=== PATIENT | female | born 1970 | race Caucasian/White ===

== ENCOUNTER → 2017-12-06 | Outpatient (CLI) | payer BC ==
[~2017-12-06] MED LIST: CARAFATE 1GM1 G PO; DEXILANT60 MG PO; FLAGYL500 MG PO; PEPTO BISMOL262 MG; PEPTO-BISM262 MG/15 PO; PEPTO-BISMOL262 M1 PO; PERCOCET 325 MG1 TA2 PO; PRILOSEC 20MG20 MG PO; TETRACYCLINE H250 M1 PO; TETRACYCLINE500 MG PO; VENTOLIN0.09 MG IH
== END ==
LOC: MC.RAD 08:36
DX: N63.10 Unspecified lump in the right breast, unspecified quadrant (principal); R59.0 Localized enlarged lymph nodes

== ENCOUNTER → 2017-12-10 | Outpatient (CLI) | payer BC | LOC: MC.RAD 10:00 | DX: C50.911 Malignant neoplasm of unspecified site of right female breast (principal) ==

== ENCOUNTER → 2017-12-18 | Outpatient (CLI) | payer BC ==
[~2017-12-18] VITALS: Ht 165.1 cm; Wt 80.0 kg
[~2017-12-18] MED LIST changes: +BACTRIM DS 8001 TAB PO
== END ==
LOC: COL.RAD 12:00
DX: C50.411 Malignant neoplasm of upper-outer quadrant of right female breast (principal)

== ENCOUNTER → 2017-12-30 | Outpatient (CLI) | payer BC ==
[~2017-12-30] MED LIST changes: +MAGNESIUM200 MG PO; +NORCO 325 MG-51 TAB PO
== END ==
LOC: COL.VAS 12-27 13:30
DX: Z01.818 Encounter for other preprocedural examination (principal); C50.919 Malignant neoplasm of unspecified site of unspecified female breast

== ENCOUNTER 2018-01-03 07:19 | Day surgery (SDC) | payer BC ==
[~2018-01-03] VITALS: Ht 162.6 cm; Wt 83.6 kg
[~2018-01-03 07:19] MED LIST changes: -MAGNESIUM200 MG PO; -NORCO 325 MG-51 TAB PO
[2018-01-03] MEDS ORDERED: CARAFATE 1GM1 G PO (07:42)
[2018-01-03] MEDS ORDERED: MAGNESIUM200 MG PO (07:42)
[2018-01-03 07:43] VITALS: BP 126/76; PULSE 77; TEMP 97.2
[2018-01-03 10:05] VITALS: BP 121/68; PULSE 67; TEMP 98
[2018-01-03] MEDS ORDERED: NORCO 325 MG-51 TAB PO (10:06)
[2018-01-03 10:20] VITALS: BP 124/66; PULSE 66
[2018-01-03 10:35] VITALS: BP 130/69; PULSE 66
[2018-01-03 10:50] VITALS: BP 127/69; PULSE 67
== END 2018-01-03 11:09 | disposition home or self-care (01) ==
LOC: SDCO 07:19
DX: C50.411 Malignant neoplasm of upper-outer quadrant of right female breast (principal); C77.3 Secondary and unspecified malignant neoplasm of axilla and upper limb lymph nodes; Z17.0 Estrogen receptor positive status [ER+]; D25.9 Leiomyoma of uterus, unspecified; G43.909 Migraine, unspecified, not intractable, without status migrainosus; K21.9 Gastro-esophageal reflux disease without esophagitis; D64.9 Anemia, unspecified; A04.8 Other specified bacterial intestinal infections; Z88.1 Allergy status to other antibiotic agents; Z80.3 Family history of malignant neoplasm of breast; Z82.49 Family history of ischemic heart disease and other diseases of the circulatory system; Z80.6 Family history of leukemia
CPT/HCPCS: C1788; J0690; J1644; J2405; J2704; J7120

== ENCOUNTER → 2018-03-13 | Outpatient (CLI) | payer BC ==
[~2018-03-13] MED LIST changes: +MAGNESIUM200 MG PO; +NORCO 325 MG-51 TAB PO
== END ==
LOC: MC.RAD 09:35
DX: C50.111 Malignant neoplasm of central portion of right female breast (principal); Z92.21 Personal history of antineoplastic chemotherapy

== ENCOUNTER 2018-06-17 06:40 | Day surgery (SDC) | payer BC ==
[2018-06-17] VITALS (7 sets, daily range): BP systolic 116–147; BP diastolic 59–69; PULSE 69–83; TEMP 97.8–98.3
[~2018-06-17] VITALS: Ht 160 cm; Wt 79.5 kg
[2018-06-17] MEDS ORDERED: PRILOSEC 20MG20 MG PO (08:15)
[2018-06-17] MEDS ORDERED: CARAFATE 1GM1 G PO (08:16)
[2018-06-17] MEDS ORDERED: B COMPLEX #11 TAB PO (08:16)
[2018-06-17] MEDS ORDERED: NORCO 325 MG-51 TAB PO (13:53)
== END 2018-06-17 16:23 | disposition home or self-care (01) ==
LOC: SDCO 06:40
DX: C50.411 Malignant neoplasm of upper-outer quadrant of right female breast (principal); C77.3 Secondary and unspecified malignant neoplasm of axilla and upper limb lymph nodes; G43.909 Migraine, unspecified, not intractable, without status migrainosus; K21.9 Gastro-esophageal reflux disease without esophagitis; D64.9 Anemia, unspecified; Z92.21 Personal history of antineoplastic chemotherapy; Z82.49 Family history of ischemic heart disease and other diseases of the circulatory system; Z80.3 Family history of malignant neoplasm of breast; Z83.3 Family history of diabetes mellitus; Z88.1 Allergy status to other antibiotic agents
CPT/HCPCS: A9541; J0690; J1100; J1885; J2405; J2704; J3010; J7120; Q9968

== ENCOUNTER 2018-07-17 06:58 | Day surgery (SDC) | payer BC ==
[~2018-07-17] VITALS: Ht 162.6 cm; Wt 77.6 kg
[~2018-07-17 06:58] MED LIST changes: +B COMPLEX #11 TAB PO
[2018-07-17 07:29] VITALS: BP 124/64; PULSE 84; TEMP 97.8
[2018-07-17] MEDS ORDERED: BENADRYL25 M2 PO (07:37)
--- NOTE | 2018-07-17 07:38 | NUR ---
TO RM 8 AT 0702- CALL LIGHT IN REACH NO ONE WITH PATIENT AT THIS TIME, WILL CALL FOR A RIDE HOME
[2018-07-17 09:27] VITALS: BP 120/669; PULSE 69; TEMP 97.6
--- NOTE | 2018-07-17 09:27 | NUR ---
TO RM 8 PER CART FROM [facility].. ALERT ORIENTED X3. C/O FEELING A LITTLE DROWSY AND REQUESTED TO SLEEP. DRESSING CLEAN DRY INTACT WITHOUT DRAINAGE. DENIES NASEA OR VOMITING.
[2018-07-17 09:45] VITALS: BP 107/71; PULSE 62
--- NOTE | 2018-07-17 09:45 | NUR ---
MORE AWAKE AND RECIEVED WATER AND APPLE SAUCE.
[2018-07-17 10:00] VITALS: BP 108/62; PULSE 64
--- NOTE | 2018-07-17 10:00 | NUR ---
ATE 100% AND TOLERATED WELL.
--- NOTE | 2018-07-17 10:15 | NUR ---
UP AMBULATED TO BATHROOM AND VOIDED.
--- NOTE | 2018-07-17 10:25 | NUR ---
RECEIVED DISCHARGE INSTRUCTIONS AND VERBALIZED UNDERSTANDING. DISCONTINUED IV AND INT- CATHETER INTACT.
--- NOTE | 2018-07-17 10:35 | NUR ---
DISCHARGED PER WC BY NURSING STAFF TO PRIVATE CAR IN CARE OF FRIEND DOLLY.
== END 2018-07-17 10:45 | disposition home or self-care (01) ==
LOC: SDCO 06:58
DX: C50.411 Malignant neoplasm of upper-outer quadrant of right female breast (principal); Z90.11 Acquired absence of right breast and nipple; K21.9 Gastro-esophageal reflux disease without esophagitis; Z92.21 Personal history of antineoplastic chemotherapy; Z79.899 Other long term (current) drug therapy
CPT/HCPCS: J0690; J2704; J3010; J7120

== ENCOUNTER 2018-07-30 14:54 | Outpatient (RCR) | payer BC ==
[~2018-07-30 14:54] MED LIST changes: +BENADRYL25 M2 PO
== END 2018-08-26 10:22 | disposition home or self-care (01) ==
LOC: MKS.ESL.PT 14:54
DX: C50.411 Malignant neoplasm of upper-outer quadrant of right female breast (principal); Z90.11 Acquired absence of right breast and nipple